=== PATIENT | male | born 1985 | race Caucasian/White ===

== ENCOUNTER 2017-03-23 12:55 | Emergency (ER) | payer MEDICARE, MEDICAID ==
[2017-03-23 13:36] VITALS: BP 136/65
--- NOTE | 2017-03-23 14:08 | UC ---
Skin Complaint HPI - HPI Summary HPI Summary: WOKE UP 7AM WITH OVERALL MALAISE, FEVER, BACK PAIN AND PAIN IN ABDOMINAL PANNUS. PT IS MORBIDLY OBESE AND HAS HAD RECURRENT CELLULITIS IN HIS PANNUS. 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 HIS PCP ADVISED HIM TO COME TO FOR EVAL. - History of Current Complaint Chief Complaint: UCAbdominalPain Time Seen by Provider: 03/23/17 13:52 Stated Complaint: DIZZY/LOW BCK PAIN/ABD PAIN Hx Obtained From: Patient Onset/Duration: Sudden Onset, Lasting Hours, Still Present Skin Exposure Onset/Duration: Hours Ago Onset Severity: Moderate Current Severity: Moderate Pain Intensity: 8 Pain Scale Used: 0-10 Numeric Location: Discrete - ABDOMINAL PANNUS Character: Pain, Redness Aggravating: Touch Alleviating: Nothing Associated Signs & Symptoms: Positive: Nausea, Fever, Lightheadedness, Tenderness - Allergy/Home Medications Allergies/Adverse Reactions: Allergies Allergy/AdvReac Type Severity Reaction Status Date / Time Penicillins Allergy Severe Airway Verified 03/23/17 13:37 Obstruction Home Medications: Home Medications Acetaminophen [Acetaminophen Extra Stren] 1,000 mg PO PRN 03/23/17 [History] Amlodipine Besylate [Norvasc 10 mg tab] 10 mg PO DAILY 03/23/17 [History Confirmed 03/23/17] Cyanocobalamin [Vitamin B-12] 500 mcg SL DAILY 03/23/17 [History Confirmed 03/23] Levothyroxine TAB* [Synthroid TAB*] 50 mcg PO DAILY 03/23/17 [History Confirmed 03/23/17] Multiple Vitamins W/ Minerals [Multi Adult Gummies] 1 chw PO DAILY 03/23/17 [ History Confirmed 03/23/17] Oxycodone W/ Acetaminophen [Percocet 7.5-325 mg (NF)] 1 tab PO BID 03/23/17 [ History Confirmed 03/23/17] Review of Systems Constitutional: Fever Skin: Other - ERYTHEMA Respiratory: Negative Cardiovascular: Negative Gastrointestinal: Other - NAUSEA All Other Systems Reviewed And Are Negative: Yes PMH/Surg Hx/FS Hx/Imm Hx Cardiovascular History Of: Reports: Hypertension - Surgical History Surgical History: Yes Surgery Procedure, Year, and Place: gastric sleeve - Family History Known Family History: Positive: Hypertension - Social History Alcohol Use: None Substance Use Type: None Smoking Status (MU): Never Smoked Tobacco Physical Exam Triage Information Reviewed: Yes Appearance: Well-Appearing, No Pain Distress, Well-Nourished, Obese Vital Signs: Initial Vital Signs Temp 100.7 F 03/23/17 13:30 Pulse 97 03/23/17 13:30 Resp 16 03/23/17 13:30 BP 136/65 03/23/17 13:30 Pulse Ox 100 03/23/17 13:30 Vital Signs Reviewed: Yes Eyes: Positive: Conjunctiva Clear ENT: Positive: Hearing grossly normal Neck: Positive: Supple Respiratory Exam: Normal Cardiovascular: Positive: Tachycardia Abdomen Description: Positive: Nontender - VERY TENDER ABDOMINAL PANNUS, Soft Neurological: Positive: Alert Psychological: Positive: Age Appropriate Behavior Skin: Positive: Other - ABDOMINAL PANNUS DIFFUSELY ERYTHEMATOUS FROM UMBILICUS DOWN. LIMITED EXAM DUE TO PT DISCOMFORT Course/Dx - Course Course Of Treatment: PT TO GO TO [facility] ER FOR FURTHER MANAGEMENT. PT DECLINES PAIN MEDS FOR NOW. WANTS TO WAIT UNTIL AT [facility]. - Diagnoses Provider Diagnoses: CELLULITIS/FEVER - Physician Notification/Consults Discussed Patient Care With: MIGNON TRINIDAD - [facility] Time Discussed With Above Provider: 14:00 - TO [facility] BY PRIVATE CAR Discharge - Discharge Plan Condition: Stable Disposition: AGAINST MEDICAL ADVICE
== END 2017-03-23 14:23 | disposition left against medical advice (07) ==
LOC: UCCORT 12:55
DX: L03.311 Cellulitis of abdominal wall (principal); I10 Essential (primary) hypertension; E66.01 Morbid (severe) obesity due to excess calories; Z88.0 Allergy status to penicillin; Z98.84 Bariatric surgery status
CPT/HCPCS: 99202; G0463